=== PATIENT | female | born 1945 | race African-American/Black ===

== ENCOUNTER 2020-05-11 13:13 | Emergency (ER) | payer MEDICARE, OTHER ==
[~2020-05-11 13:13] MED LIST: Iopamidol 370 76% 125 ML VIAL FS ONE; Sodium Chloride 0.9% 1,000 ML BAG ONE; Sodium Chloride 0.9% 100 ML BAG ONE
--- NOTE | 2020-05-11 13:56 | RAD ---
EXAM: Single view of the chest HISTORY: Cough and fever COMPARISON: 09/09/2019 FINDINGS: Single view of the chest shows a normal sized cardiomediastinal silhouette. There is no kathleen dence of consolidation, mass, or pleural effusion. The bones are unremarkable IMPRESSION: No evidence of acute cardiopulmonary disease
[2020-05-11] MEDS ORDERED: Acetaminophen 325 MG TAB ONE (14:28)
[2020-05-11 14:37] LABS: #Basophils 0.1 thou/uL (0.0-0.2); #Eosinphils 0.1 thou/uL (0.0-0.7); #Lymphocytes 2.1 thou/uL (1.20-3.40); #Monocytes 0.8 thou/uL (0.11-0.59); #Neutrophils 3.9 thou/uL (1.40-6.50); %Basophils 1.2 % (0.0-1.0); %Eosinophils 1.3 % (0.0-10.0); %Lymphocytes 29.7 % (21.0-51.0); %Neutrophils 56.8 % (42.0-75.0); Hemoglobin 13.2 g/dL (12.0-16.0); Mean Corpuscular HGB CONC 30.3 g/dL (32.0-36.0); Mean Corpuscular Hemoglobin 26.6 pg (27.0-31.0); Mean Corpuscular Volume 87.8 fL (78.0-98.0); Mean Platelet Volume 6.9 fL (7.4-10.4); Platelet Count 281 thou/uL (130-400); RBC Distribution Width 13.3 % (11.5-14.5); Red Blood Cell (RBC) Count 4.95 mill/uL (4.20-5.40); White Blood Cell (WBC) Count 6.9 thou/uL (4.8-10.8)
[2020-05-11 14:45] LABS: Bilirubin Negative (Negative); Blood, Urine Trace (Negative); Glucose, Urine (Dipstick) Negative (Negative); Ketone, Urine Negative (Negative); Leukocyte Negative (Negative); Nitrite Negative (Negative); Protein, Urine (Dipstick) Negative (Neg-Trace); pH, Urine 5.5 (5.0-9.0)
[2020-05-11 14:51] LABS: INR-International Normal Ratio 1.1; PTT 28.2 sec (22.9-36.1); Prothrombin Time 14.5 sec (12.0-14.7)
[2020-05-11 14:52] LABS: ALT (SGPT) 23 U/L (8-55); AST (SGOT) 24 U/L (5-34); Albumin 3.4 g/dL (3.4-4.8); Alkaline Phosphatase 143 U/L (40-110); Anion Gap 14 mmol/L (10-20); BUN (Urea Nitrogen) 11 mg/dL (9.8-20.1); Bilirubin, Total 0.5 mg/dL (0.2-1.2); Calc. Creatinine Clearance 0 mL/min (70-130); Calcium 9.4 mg/dL (7.8-10.44); Carbon Dioxide 31 mmol/L (23-31); Chloride 99 mmol/L (98-107); Estimated GFR-MDRD Greater than 90; Globulin 3.8 g/dL (2.4-3.5); Glucose 99 mg/dL (83-110); Potassium 4.3 mmol/L (3.5-5.1); Protein, Total 7.2 g/dL (6.0-8.3); Sodium 140 mmol/L (136-145)
[2020-05-11 14:56] LABS: Clarity Hazy (Clear); Specific Gravity, Urine 1.015 (1.002-1.036)
[2020-05-11 14:57] LABS: Bacteria/HPF 3+ HPF (None Seen); Squamous Epithelial 0-3 HPF (0-3)
[2020-05-11 14:59] LABS: D-Dimer Test 2.76 *mcg/mL (0.27-0.43)
--- NOTE | 2020-05-11 16:50 | CT ---
CTA Angio Chest W WO Con History: Cough and fever Comparison: Reference is made to a radiograph of the chest same day Findings: CT angiogram chest performed after the intravenous administration of contrast. 3-D renderin g provided. There is a 1.7 cm mass in the left breast which contains an internal calcification. Pulmonary trunk i s mildly dilated. No proximal segmental pulmonary arterial filling defect. Heart size is enlarged. No pericardial effusion. Limited evaluation of the upper abdomen is relatively unremarkable. Small sliding hiatal hernia. Multiple hypodensities right lobe of the thyroid. Moderate centrilobular emphysema. Chronic bronchitis within both lower lobes, similar to the 2019 CT exam. No pneumothorax. No significant effusion. No suspicious pulmonary nodule. Impression: 1. No pulmonary embolism. 2. Mildly dilated pulmonary trunk and pulmonary arteries suggesting pulmonary hypertension. 3. Chronic lower lobe bronchitis relatively similar to 2019. 4. Moderate cardiomegaly. 5. Incompletely evaluated mass in the left breast with an internal calcification. Diagnostic mammogra phy recommended. 6. Moderate background centrilobular emphysema. 7. Multiple hypodensities right lobe of the thyroid for which nonemergent ultrasound recommended. Code: CR. ER physician notified via telephone at 4:45 pm
[2020-05-12 15:20] LABS: SARS-CoV-2 MS2 Positive; SARS-CoV-2 N Gene Negative; SARS-CoV-2 S Gene Negative; SARS-CoV-2 by NAA Not Detected (NotDetected); SARS-CoV-2 orf1ab Negative
== END 2020-05-11 18:00 ==
LOC: MADERS 13:13
DX: J42 Unspecified chronic bronchitis (principal); N63.0 Unspecified lump in unspecified breast; Z20.828 Contact with and (suspected) exposure to other viral communicable diseases; I10 Essential (primary) hypertension; E78.5 Hyperlipidemia, unspecified; E78.00 Pure hypercholesterolemia, unspecified; F03.90 Unspecified dementia, unspecified severity, without behavioral disturbance, psychotic disturbance, mood disturbance, and anxiety; Z79.82 Long term (current) use of aspirin; Z79.899 Other long term (current) drug therapy; Z79.51 Long term (current) use of inhaled steroids
CPT/HCPCS: 71045; 71275; 80053; 83605; 83880; 85025; 85379; 85610; 85730; 87040; 87077; 87086; U0003; 36415; 51701; 81003; 81015; 87186; 87635; 96360; 96361; J3490; J7050; Q9967

== ENCOUNTER 2020-05-14 10:58 | Inpatient (IN) | payer MEDICARE, OTHER ==
[2020-05-14 14:23] VITALS: BMI 31.6
[2020-05-14 15:56] LABS: #Basophils 0.1 thou/uL (0.0-0.2); #Eosinphils 0.1 thou/uL (0.0-0.7); #Lymphocytes 1.8 thou/uL (1.20-3.40); #Monocytes 0.7 thou/uL (0.11-0.59); #Neutrophils 3.8 thou/uL (1.40-6.50); %Basophils 1.9 % (0.0-1.0); %Eosinophils 1.1 % (0.0-10.0); %Lymphocytes 27.8 % (21.0-51.0); %Monocytes 10.1 % (0.0-10.0); %Neutrophils 59.1 % (42.0-75.0); Hemoglobin 12.1 g/dL (12.0-16.0); Mean Corpuscular HGB CONC 30.2 g/dL (32.0-36.0); Mean Corpuscular Hemoglobin 26.5 pg (27.0-31.0); Mean Corpuscular Volume 87.7 fL (78.0-98.0); Mean Platelet Volume 6.5 fL (7.4-10.4); Platelet Count 271 thou/uL (130-400); RBC Distribution Width 13.6 % (11.5-14.5); Red Blood Cell (RBC) Count 4.56 mill/uL (4.20-5.40); White Blood Cell (WBC) Count 6.5 thou/uL (4.8-10.8)
[2020-05-14 16:09] LABS: ALT (SGPT) 19 U/L (8-55); AST (SGOT) 18 U/L (5-34); Albumin 3.3 g/dL (3.4-4.8); Alkaline Phosphatase 126 U/L (40-110); Anion Gap 12 mmol/L (10-20); BUN (Urea Nitrogen) 10 mg/dL (9.8-20.1); Bilirubin, Total 0.3 mg/dL (0.2-1.2); Calc. Creatinine Clearance 150 mL/min (70-130); Calcium 9.2 mg/dL (7.8-10.44); Carbon Dioxide 32 mmol/L (23-31); Chloride 102 mmol/L (98-107); Estimated GFR-MDRD Greater than 90; Globulin 3.6 g/dL (2.4-3.5); Glucose 110 mg/dL (83-110); Potassium 4.2 mmol/L (3.5-5.1); Protein, Total 6.9 g/dL (6.0-8.3); Sodium 142 mmol/L (136-145)
[2020-05-14] MEDS: Vancomycin HCl 500 MG in Sodium Chloride 0.9% 100 ML IVPB SCH (16:30)
[2020-05-14] MEDS: Vancomycin HCl 750 MG in Sodium Chloride 0.9% 250 ML 250 ML IVPB SCH (16:30)
[2020-05-14] MEDS ORDERED: Nitroglycerin 0.4 MG TAB (25 Tab Bottle) SL PRN (17:20)
[2020-05-14] MEDS ORDERED: Ondansetron ODT 4 MG TAB PO PRN (17:20)
[2020-05-14] MEDS ORDERED: Fleet Enema 133 ML BOT PR PRN (17:20)
[2020-05-14] MEDS ORDERED: AMINO ACIDS PO SCH (21:00)
[2020-05-14] MEDS ORDERED: PROTEIN HYDROLYS PO SCH (21:00)
[2020-05-14] MEDS ORDERED: [UNRECOGNIZED DRUG - OTHER] PO SCH (21:00)
[2020-05-14] MEDS: Latanoprost 0.005% Ophth Soln 2.5 ml Bottle EA EYE SCH (21:43)
[2020-05-14] MEDS: CARBOXYMETHYLCELLULOSE SODIUM EA EYE SCH (21:45)
[2020-05-14] MEDS: Enoxaparin Sodium 40 MG/0.4 ML SYRINGE SC SCH (21:46)
[2020-05-14] MEDS: Simvastatin 20 MG TAB PO SCH (21:47)
[2020-05-14] MEDS: traZODone HCl 50 MG TAB PO SCH (21:47)
[2020-05-14] MEDS: Furosemide 20 MG TAB PO SCH (21:47)
[2020-05-15] MEDS: Vancomycin HCl 750 MG in Sodium Chloride 0.9% 250 ML 250 ML IVPB SCH ×2 (03:56→16:02)
[2020-05-15] MEDS: Vancomycin HCl 500 MG in Sodium Chloride 0.9% 100 ML IVPB SCH ×2 (04:07→16:03)
[2020-05-15] MEDS: Aspirin 81 mg Enteric Coated Tablet PO SCH (08:56)
[2020-05-15] MEDS: Zinc Sulfate 220 MG CAP PO SCH (08:56)
[2020-05-15] MEDS: Multivitamin W/ Minerals 1 TAB PO SCH (08:57)
[2020-05-15] MEDS: Polyethylene Glycol 3350 17 GM Packet PO SCH (08:57)
[2020-05-15] MEDS: CARBOXYMETHYLCELLULOSE SODIUM EA EYE SCH (08:57)
[2020-05-15] MEDS: Furosemide 20 MG TAB PO SCH (08:57)
[2020-05-15] MEDS ORDERED: Furosemide 20 MG TAB PO SCH (09:00)
[2020-05-15] MEDS ORDERED: (Bromfenac Sodium [Prolensa] 1 DROP) R EYE SCH (09:00)
--- NOTE | 2020-05-15 11:03 | HP ---
REASON FOR ADMISSION: Bacteremia,Urinary tract infection HISTORY OF PRESENT ILLNESS AND HOSPITAL COURSE: Ms. Hendricks is a 75-year-old female with advanced Alzheimer's dementia, CHF with latest EF of 55% to 60%, dyslipidemia, asthma/COPD,,Oxygen dependent and oropharyngeal dysphagia. The patient is a long-term resident of [facility]. The patient is in her usual state of health when the fdc staff reported four days ago that the patient has wet cough and diminished upper lobes. She was also noted to be very lethargic with blood pressure of 99/57 and heart rate of 101, and temp of 97.5. She is on continuous home O2 per nasal cannula. At that time, her O2 saturation was 98% on 2 L per nasal cannula. She was subsequently sent to the ER and was evaluated in [place] [facility]. At the ER the patient was noted to have a temperature of 100.7. On further evaluation in the ER showed that the patient was not in respiratory distress, but breath sounds of coarse crackles at the right base as per report. Her initial lab work showed WBC of 6.9.D-dimer of 2.76. INR 1.1. PT 14.5. BNP of 25. Urinalysis showed mild pyuria with urine wbc 4 to 6 with 3+ bacteria. Chest x-ray showed no evidence of acute cardiopulmonary disease. CTA showed moderate centrilobular emphysema, chronic bronchitis within both lower lobes which is similar to the 2019 CT exam. No pneumothorax. No significant effusion. No suspicious pulmonary nodule. There was a 1.7 cm mass in the left breast, which contains an internal calcification. Pulmonary trunk is mildly dilated. No pulmonary embolism. Mildly dilated pulmonary trunk and pulmonary artery suggestive of pulmonary hypertension. Moderate cardiomegaly. COVID screen test was obtained at the time of visit. The patient was sent back to the [facility] with pending COVID -19 screening test. At that time, the patient remains unchanged with her clinical status. She was still nontoxic looking nor ill-appearing and not in distress per ER report. The above ER assessment was discussed with me by the ER physician, Dr. Luis Mckeon, which was coordinated along with the adjunct nursing faculty. After learning that [facility] would be able to accommodate back the patient under isolation, the patient was sent back to [facility] for further observation. The patient remains afebrile until COVID screening test came back negative on 05/14/2020. There was no recurrence of cough reported. However, the patient's urine culture came back positive for Enterococcus faecalis and the blood culture came back positive for Staphylococcus capitis,with two of two culture sets drawn were positive. The patient was then admitted directly to [facility] after coordination with the nursing student of Nursing for inpatient IV antibiotic management. Family was notified as well by the fdc staff, who concurs to the plan of care. When admitted, the patient was afebrile and remained to be hemodynamically stable. She was not in distress. She has advanced dementia and a poor historian. She was confused, which is her baseline mental status. could not contribute nor express concerns at this point. PAST MEDICAL HISTORY: Hypertension, dyslipidemia, advanced dementia, arthritis, urinary incontinence, [place] in 2007, history of rhabdomyolysis, wristdrop, history of fall, CHF with EF of 55% to 60%, diastolic dysfunction, echocardiogram in 2018, history of weight loss, dysphagia, and asthma/COPD, DTI in the left heel, chronic. Abnormality of gait and balance, wheelchair bound, Alzheimer disease with behavioral disturbances. PAST SURGICAL HISTORY: Hysterectomy 1972, cataract surgery left eye in [place] 08/07/2019, cataract surgery in the right eye in [place] 2018. MEDICATIONS: 1. Furosemide 20 mg p.o. twice a day. 2. Trazodone 25 mg p.o. at bedtime. 3. Potassium chloride 20 mEq p.o. daily. 4. Simvastatin 20 mg at bedtime. 5. Xalatan 0.005% one drop into affected eye in the evening at bedtime. 6. Pro-Stat 30 mL p.o. b.i.d. liquid. 7. Artificial Tears 1-2 drops daily. 8. Bromfenac sodium 0.07 solution one drop into affected eye daily. 9. Acetaminophen 500 mg p.o. q.4 hours p.r.n. 10. Lactulose 10 g per 15 mL, 30 mL at bedtime p.r.n. 11. MiraLAX 17 g at bedtime daily. 12. Multivitamins one tablet p.o. daily. FAMILY HISTORY: Noncontributory. SOCIAL HISTORY: She was a former smoker. No alcohol or illicit drug use. ALLERGIES: NKDA. PREVIOUS HOSPITALIZATION: Hysterectomy 1972, heart attack 2007, UTI and asthma exacerbation with acute respiratory failure and hypoxia 09/09 to 09/13/2019. REVIEW OF SYSTEMS: Limited secondary to dementia. PHYSICAL EXAMINATION: VITAL SIGNS: Blood pressure 137/62, temperature 96.9, pulse 80, respirations 16 , O2 saturation 95% on 2 L nasal cannula. GENERAL: The patient is awake, alert, and oriented to name only. Confused, pleasant, no signs of agony, not in acute respiratory distress. HEENT: Normocephalic, atraumatic. PERRL. Intact EOM. Anicteric sclerae. Oral mucosa is moist. NECK: Supple. No LAD. Flat JVD. CHEST: Normal excursion. Nonlabored breathing. LUNGS: Clear to auscultation bilaterally. CARDIAC: RRR. Normal S1 and S2. ABDOMEN: Flat, soft. Normoactive bowel sounds. Nondistended, nontender. No rebound or guarding. Negative CVA tenderness bilaterally with mild suprapubic direct tenderness. EXTREMITIES: Trace nonpitting bilateral edema up to the thigh. No cyanosis. SKIN: Good skin turgor with left heel DTI. She wears heel boot bilaterally. LABORATORY DATA: WBC 6.5, hemoglobin 12.1, hematocrit 40, platelets 271. No significant left shift. Sodium 142, potassium 4.2, BUN 10, creatinine 0.44, glucose 110, calcium 9.2, alkaline phosphatase 126. C-reactive protein 4.07, albumin 3.3. COVID-19 PCR on 05/11/2020, negative. Urine culture and blood culture sent, both sensitive to vancomycin. Lactic acid on 05/11/2020 was 1.4.BNP 25. ASSESSMENT AND PLAN: 1. Bacteremia without evidence of sepsis. 2. UTI with Enterococcus faecalis. 3. Congestive heart failure, diastolic with ejection fraction of 55% to 60% as of echocardiogram on September 2019, not in acute exacerbation. 4. Chronic obstructive pulmonary disease. 5. Dysphagia, oropharyngeal phase. 6. Dependence on continuous supplemental oxygen. 7. Chronic insomnia. 8. Alzheimer's dementia with behavioral disturbances, late onset. 9. Abnormality of gait due to impairment of balance. 10. Left Breast mass, 1.7 cm as determined by CTA of the chest, suspect malignancy needing further outpatient evaluation. 11. Multiple densities of thyroid by CTA on 05/11/2020 Pressure induced deep tissue damage of the left heel. 12. Dyslipidemia. PLAN: 1. The patient is admitted to [facility] for inpatient management of bacteremia and UTI in a 75-year-old with advanced dementia and multiple comorbidities from the [facility]dc facility. There was no apparent evidence of sepsis.There was no signs of septic shock, hypotension, elevated lactate or evidence of organ dysfunction. We will start vancomycin IV based on urine and blood cultures. Vancomycin trough to be obtained after third dose. Pharmacy to dose. 2. We will continue the patient's current medications per list. 3. Diet pureed and nectar thickened. Aspiration precautions. 4. Activity to be determined by therapist. Based on her baseline functional status, she is wheelchair bound. She is at risk for fall. Fall precautions. 5. Continue O2 sats to keep O2 sats 90 and above. 6. Refer to PT, OT, and ST. 7. Serial CBC, BMP, sedimentation rate, and CRP every week. 8. Plan is to complete IV antibiotic therapy for 7-14 days. 9. Further recommendations depending on the hospital course. 10. Outpatient diagnostic mammogram and Thyroid USG will be considered by family post hospitalization. CODE STATUS: The patient is DNAR. This was confirmed with her sister, Christianne Ortiz, who is the medical power of monumental stonemason and surrogate decision maker for the patient. I spoke to Ms. Ortiz in the phone and discussed the patient's current condition, plan of care. Job ID: [id number] [facility]
[2020-05-15] MEDS: BROMFENAC SODIUM R EYE SCH (16:09)
[2020-05-15] MEDS: Latanoprost 0.005% Ophth Soln 2.5 ml Bottle EA EYE SCH (20:43)
[2020-05-15] MEDS: traZODone HCl 50 MG TAB PO SCH (20:44)
[2020-05-15] MEDS: Simvastatin 20 MG TAB PO SCH (20:44)
[2020-05-15] MEDS: Artificial Tear Sol 15 ML BOT EA EYE SCH (20:44)
[2020-05-15] MEDS: Enoxaparin Sodium 40 MG/0.4 ML SYRINGE SC SCH (20:45)
[2020-05-16 03:17] LABS: Vancomycin, Trough 15.6 ug/mL
[2020-05-16] MEDS: Vancomycin HCl 750 MG in Sodium Chloride 0.9% 250 ML 250 ML IVPB SCH ×2 (04:13→15:29)
[2020-05-16] MEDS: Vancomycin HCl 500 MG in Sodium Chloride 0.9% 100 ML IVPB SCH ×2 (04:13→15:29)
[2020-05-16] MEDS: Zinc Sulfate 220 MG CAP PO SCH (08:15)
[2020-05-16] MEDS: Artificial Tear Sol 15 ML BOT EA EYE SCH ×2 (08:15→20:44)
[2020-05-16] MEDS: Multivitamin W/ Minerals 1 TAB PO SCH (08:15)
[2020-05-16] MEDS: Aspirin 81 mg Enteric Coated Tablet PO SCH (08:16)
[2020-05-16] MEDS: BROMFENAC SODIUM R EYE SCH (08:16)
[2020-05-16] MEDS: Furosemide 20 MG TAB PO SCH (08:16)
[2020-05-16] MEDS: Polyethylene Glycol 3350 17 GM Packet PO SCH (08:17)
[2020-05-16] MEDS ORDERED: Furosemide 20 MG TAB PO SCH (10:30)
[2020-05-16] MEDS: Acetaminophen 500 MG TAB PO PRN (20:43)
[2020-05-16] MEDS: Simvastatin 20 MG TAB PO SCH (20:43)
[2020-05-16] MEDS: Latanoprost 0.005% Ophth Soln 2.5 ml Bottle EA EYE SCH (20:44)
[2020-05-16] MEDS: traZODone HCl 50 MG TAB PO SCH (20:44)
[2020-05-16] MEDS: Enoxaparin Sodium 40 MG/0.4 ML SYRINGE SC SCH (20:44)
[2020-05-17] MEDS: Vancomycin HCl 750 MG in Sodium Chloride 0.9% 250 ML 250 ML IVPB SCH ×2 (03:03→15:19)
[2020-05-17] MEDS: Vancomycin HCl 500 MG in Sodium Chloride 0.9% 100 ML IVPB SCH ×2 (04:10→15:18)
[2020-05-17] MEDS: Aspirin 81 mg Enteric Coated Tablet PO SCH (08:11)
[2020-05-17] MEDS: Artificial Tear Sol 15 ML BOT EA EYE SCH ×2 (08:11→21:19)
[2020-05-17] MEDS: Potassium Chloride 20 MEQ TAB PO SCH (08:11)
[2020-05-17] MEDS: Furosemide 20 MG TAB PO SCH (08:11)
[2020-05-17] MEDS: Zinc Sulfate 220 MG CAP PO SCH (08:11)
[2020-05-17] MEDS: Multivitamin W/ Minerals 1 TAB PO SCH (08:11)
[2020-05-17] MEDS: Polyethylene Glycol 3350 17 GM Packet PO SCH (08:11)
[2020-05-17] MEDS: BROMFENAC SODIUM R EYE SCH (08:12)
[2020-05-17 15:11] LABS: Vancomycin, Trough 18.5 ug/mL
[2020-05-17] MEDS: traZODone HCl 50 MG TAB PO SCH (21:16)
[2020-05-17] MEDS: Acetaminophen 500 MG TAB PO PRN (21:16)
[2020-05-17] MEDS: Enoxaparin Sodium 40 MG/0.4 ML SYRINGE SC SCH (21:16)
[2020-05-17] MEDS: Simvastatin 20 MG TAB PO SCH (21:16)
[2020-05-17] MEDS: Latanoprost 0.005% Ophth Soln 2.5 ml Bottle EA EYE SCH (21:19)
[2020-05-18] MEDS: Vancomycin HCl 750 MG in Sodium Chloride 0.9% 250 ML 250 ML IVPB SCH (03:09)
[2020-05-18] MEDS: Vancomycin HCl 500 MG in Sodium Chloride 0.9% 100 ML IVPB SCH (04:01)
[2020-05-18] MEDS: Zinc Sulfate 220 MG CAP PO SCH (09:43)
[2020-05-18] MEDS: Multivitamin W/ Minerals 1 TAB PO SCH (09:43)
[2020-05-18] MEDS: Furosemide 20 MG TAB PO SCH (09:43)
[2020-05-18] MEDS: Polyethylene Glycol 3350 17 GM Packet PO SCH (09:43)
[2020-05-18] MEDS: Aspirin 81 mg Enteric Coated Tablet PO SCH (09:43)
[2020-05-18] MEDS: BROMFENAC SODIUM R EYE SCH (09:44)
[2020-05-18] MEDS: Potassium Chloride 20 MEQ TAB PO SCH (09:44)
[2020-05-18] MEDS: Artificial Tear Sol 15 ML BOT EA EYE SCH (09:44)
[2020-05-18] MEDS: Acetaminophen 500 MG TAB PO PRN (11:26)
[2020-05-18 12:45] VITALS: BP 105/66; TEMP 96.8
--- NOTE | 2020-05-20 11:33 | PQF ---
CLINICAL DOCUMENTATION CLARIFICATION FORM: Dear : _Conchis Jean Baptiste Date / Time: __05/20/2020_ Please exercise your independent, professional judgment in responding to the clarification form. Clinical indicators are provided on the bottom of this form for your review Please check appropriate box(es): [ ] Sepsis [ X ] UTI without sepsis [ X] Other diagnosis _Bacteremia with Staphylococcus capitis [ ] Unable to determine In addition, please specify: Present on Admission (POA): [ X ] Yes [ ] No [ ] Unable to determine NOTE: The patient has no evidence of SIRS upon admission. Her highest HR on 05/16/20 was 105 per minute, x 1 episode. Physician Signature: Date/Time: For continuity of documentation, please document condition throughout progress notes and discharge summary. Thank You. To be completed by CDI/Coding staff for physician review: w Present w Clinical Indicators - Signs / Symptoms / Labs w Results and Location in Medical Record w [x ] w Bacteremia and UTI w H&P, 05/14,Conchis Jean Baptiste MD w [x ] w Urosepsis w H&P, 05/14,Conchis Jean Baptiste MD w [x ] w Temp: 96.9F L, 97.9F, Pulse: 115H, 102H w Vital signs, 05/16 w [x ] w Urinalysis showed mild pyuria with wbc 4 to 6 with 3+ bacteria w H&P, ,Conchis Jean Baptiste MD w w w w Present w Risk Factors w Results and Location in Medical Record w [x ] w UTI w H&P, 05/14,Conchis Jean Baptiste MD w [x ] w Pressure induced deep tissue damage of the left heel w H&P, 05/14, Conchis Jean Baptiste MD w w w w Present w Treatments w Results and Location in Medical Record w [x ] w Vancomycin.IV w NOV, 05/14 w w w CDS/Gta Signature: Yady Pitts Phone #: [phone] Date/Time:_ 05/20/2020 This is a permanent part of the Medical Record [facility]
== END 2020-05-18 14:04 | disposition swing bed (61) | DRG 690 ==
LOC: MADMS 13:19
PROVIDERS: ADMIT Family Medicine; ATTEND Family Medicine
DX: N39.0 Urinary tract infection, site not specified (principal); I50.32 Chronic diastolic (congestive) heart failure; F02.81 Dementia in other diseases classified elsewhere, unspecified severity, with behavioral disturbance; R13.10 Dysphagia, unspecified; F51.04 Psychophysiologic insomnia; G30.9 Alzheimer's disease, unspecified; R26.9 Unspecified abnormalities of gait and mobility; E78.5 Hyperlipidemia, unspecified; E05.90 Thyrotoxicosis, unspecified without thyrotoxic crisis or storm; J44.9 Chronic obstructive pulmonary disease, unspecified; Z99.81 Dependence on supplemental oxygen; Z99.3 Dependence on wheelchair
CPT/HCPCS: 36415; 51701; 71045; 71275; 80053; 80202; 81003; 81015; 83605; 83880; 85025; 85379; 85610; 85652; 85730; 86140; 87040; 87077; 87086; 87186; 87635; 96360; 96361; J1650; J3370; J3490; J7050; Q9967; U0003

== ENCOUNTER 2020-05-18 13:22 | Inpatient (IN) | payer MEDICARE, OTHER ==
[2020-05-18] MEDS ORDERED: Ondansetron ODT 4 MG TAB PO PRN (14:50)
[2020-05-18] MEDS ORDERED: Nitroglycerin 0.4 MG TAB (25 Tab Bottle) SL PRN (14:50)
[2020-05-18] MEDS ORDERED: Acetaminophen 500 MG TAB PO PRN (14:50)
[2020-05-18] MEDS ORDERED: Fleet Enema 133 ML BOT PR PRN (14:50)
[2020-05-18] MEDS ORDERED: Vancomycin HCl 750 MG in Sodium Chloride 0.9% 250 ML 250 ML IVPB SCH (16:00)
[2020-05-18] MEDS ORDERED: Vancomycin HCl 750 MG VIAL IVPB SCH (16:00)
[2020-05-18] MEDS ORDERED: Vancomycin HCl 500 MG VIAL IVPB SCH (17:00)
[2020-05-18] MEDS ORDERED: SODIUM CHLORIDE 0.9% IVPB SCH (17:00)
[2020-05-18] MEDS ORDERED: Vancomycin HCl 500 MG in Sodium Chloride 0.9% 100 ML IVPB SCH (17:00)
[2020-05-18] MEDS ORDERED: [UNRECOGNIZED DRUG - OTHER] IVPB SCH (17:00)
[2020-05-18] MEDS ORDERED: PROTEIN HYDROLYS PO SCH (21:00)
[2020-05-18] MEDS ORDERED: [UNRECOGNIZED DRUG - OTHER] PO SCH (21:00)
[2020-05-18] MEDS ORDERED: AMINO ACIDS PO SCH (21:00)
[2020-05-18] MEDS: Latanoprost 0.005% Ophth Soln 2.5 ml Bottle EA EYE SCH (21:38)
[2020-05-18] MEDS: Enoxaparin Sodium 40 MG/0.4 ML SYRINGE SC SCH (21:38)
[2020-05-18] MEDS: Artificial Tear Sol 15 ML BOT EA EYE SCH (21:38)
[2020-05-18] MEDS: Acetaminophen 500 MG TAB PO PRN (21:38)
[2020-05-18] MEDS: traZODone HCl 50 MG TAB PO SCH (21:39)
[2020-05-18] MEDS: Simvastatin 20 MG TAB PO SCH (21:39)
[2020-05-18] MEDS: CARBOXYMETHYLCELLULOSE SODIUM EA EYE SCH (21:55)
[2020-05-19 03:11] LABS: Vancomycin, Trough 19.8 ug/mL
[2020-05-19] MEDS: Vancomycin HCl 1 GM in Sodium Chloride 0.9% 250 ML 250 ML IVPB SCH ×2 (03:46→16:01)
[2020-05-19 07:30] LABS: Hemoglobin 10.7 g/dL (12.0-16.0); Mean Corpuscular Hemoglobin 26.5 pg (27.0-31.0); Mean Corpuscular Volume 88.4 fL (78.0-98.0); Platelet Count 223 thou/uL (130-400); RBC Distribution Width 13.7 % (11.5-14.5); Red Blood Cell (RBC) Count 4.02 mill/uL (4.20-5.40); White Blood Cell (WBC) Count 5.8 thou/uL (4.8-10.8)
[2020-05-19 07:31] LABS: MDiff Complete? YES; Manual Diff?? YES; Mean Platelet Volume 6.9 fL (7.4-10.4); Monocytes 11 % (0-10)
[2020-05-19 07:32] LABS: Eosinophils 7 % (0-10); Lymphocytes 33 % (21-51)
[2020-05-19 07:33] LABS: Neutrophil 47 % (42-75)
[2020-05-19 07:49] LABS: Potassium 4.3 mmol/L (3.5-5.1); Sodium 144 mmol/L (136-145)
[2020-05-19 07:50] LABS: Anion Gap 12 mmol/L (10-20); BUN (Urea Nitrogen) 8 mg/dL (9.8-20.1); CRP (Inflammatory) 1.85 mg/dL (= or < 0.5); Calc. Creatinine Clearance 152 mL/min (70-130); Calcium 8.9 mg/dL (7.8-10.44); Carbon Dioxide 32 mmol/L (23-31); Chloride 104 mmol/L (98-107); Estimated GFR-MDRD Greater than 90; Glucose 86 mg/dL (83-110)
[2020-05-19] MEDS: Potassium Chloride 20 MEQ TAB PO SCH (08:06)
[2020-05-19] MEDS: Furosemide 20 MG TAB PO SCH (08:06)
[2020-05-19] MEDS: Artificial Tear Sol 15 ML BOT EA EYE SCH ×2 (08:06→21:19)
[2020-05-19] MEDS: Zinc Sulfate 220 MG CAP PO SCH (08:06)
[2020-05-19] MEDS: Multivitamin W/ Minerals 1 TAB PO SCH (08:06)
[2020-05-19] MEDS: Aspirin 81 mg Enteric Coated Tablet PO SCH (08:06)
[2020-05-19] MEDS: Polyethylene Glycol 3350 17 GM Packet PO SCH (08:07)
[2020-05-19] MEDS: CARBOXYMETHYLCELLULOSE SODIUM EA EYE SCH ×3 (08:10→21:29)
[2020-05-19] MEDS: (Bromfenac Sodium [Prolensa] 1 DROP) R EYE SCH (08:10)
[2020-05-19] MEDS: Enoxaparin Sodium 40 MG/0.4 ML SYRINGE SC SCH (21:19)
[2020-05-19] MEDS: Simvastatin 20 MG TAB PO SCH (21:20)
[2020-05-19] MEDS: Latanoprost 0.005% Ophth Soln 2.5 ml Bottle EA EYE SCH (21:20)
[2020-05-19] MEDS: Acetaminophen 500 MG TAB PO PRN (21:20)
[2020-05-19] MEDS: traZODone HCl 50 MG TAB PO SCH (21:20)
[2020-05-20] MEDS: Vancomycin HCl 1 GM in Sodium Chloride 0.9% 250 ML 250 ML IVPB SCH ×2 (03:42→16:11)
[2020-05-20] MEDS: Aspirin 81 mg Enteric Coated Tablet PO SCH (08:05)
[2020-05-20] MEDS: Zinc Sulfate 220 MG CAP PO SCH (08:05)
[2020-05-20] MEDS: Furosemide 20 MG TAB PO SCH (08:05)
[2020-05-20] MEDS: Potassium Chloride 20 MEQ TAB PO SCH (08:05)
[2020-05-20] MEDS: Artificial Tear Sol 15 ML BOT EA EYE SCH ×2 (08:05→20:26)
[2020-05-20] MEDS: (Bromfenac Sodium [Prolensa] 1 DROP) R EYE SCH (08:06)
[2020-05-20] MEDS: Multivitamin W/ Minerals 1 TAB PO SCH (08:06)
[2020-05-20] MEDS: CARBOXYMETHYLCELLULOSE SODIUM EA EYE SCH ×2 (08:06→20:25)
[2020-05-20] MEDS: Polyethylene Glycol 3350 17 GM Packet PO SCH (08:06)
[2020-05-20 15:19] LABS: Vancomycin, Trough 17.5 ug/mL
[2020-05-20] MEDS: Enoxaparin Sodium 40 MG/0.4 ML SYRINGE SC SCH (20:25)
[2020-05-20] MEDS: traZODone HCl 50 MG TAB PO SCH (20:26)
[2020-05-20] MEDS: Latanoprost 0.005% Ophth Soln 2.5 ml Bottle EA EYE SCH (20:26)
[2020-05-20] MEDS: Simvastatin 20 MG TAB PO SCH (20:27)
[2020-05-21] MEDS ORDERED: Sodium Chloride 0.9% 250 ML 250 ML ONE (02:10)
[2020-05-21] MEDS: Vancomycin HCl 1 GM in Sodium Chloride 0.9% 250 ML 250 ML IVPB SCH ×2 (03:04→16:41)
[2020-05-21] MEDS: Artificial Tear Sol 15 ML BOT EA EYE SCH ×2 (08:16→20:12)
[2020-05-21] MEDS: Aspirin 81 mg Enteric Coated Tablet PO SCH (08:16)
[2020-05-21] MEDS: Polyethylene Glycol 3350 17 GM Packet PO SCH (08:16)
[2020-05-21] MEDS: Potassium Chloride 20 MEQ TAB PO SCH (08:17)
[2020-05-21] MEDS: CARBOXYMETHYLCELLULOSE SODIUM EA EYE SCH (08:17)
[2020-05-21] MEDS: (Bromfenac Sodium [Prolensa] 1 DROP) R EYE SCH (08:17)
[2020-05-21] MEDS: Furosemide 20 MG TAB PO SCH (08:17)
[2020-05-21] MEDS: Zinc Sulfate 220 MG CAP PO SCH (08:17)
[2020-05-21] MEDS: Multivitamin W/ Minerals 1 TAB PO SCH (08:17)
[2020-05-21] MEDS: traZODone HCl 50 MG TAB PO SCH (20:09)
[2020-05-21] MEDS: Enoxaparin Sodium 40 MG/0.4 ML SYRINGE SC SCH (20:09)
[2020-05-21] MEDS: Simvastatin 20 MG TAB PO SCH (20:09)
[2020-05-21] MEDS: Latanoprost 0.005% Ophth Soln 2.5 ml Bottle EA EYE SCH (20:10)
[2020-05-22] MEDS: Vancomycin HCl 1 GM in Sodium Chloride 0.9% 250 ML 250 ML IVPB SCH ×2 (02:59→15:57)
[2020-05-22] MEDS: Aspirin 81 mg Enteric Coated Tablet PO SCH (08:06)
[2020-05-22] MEDS: Potassium Chloride 20 MEQ TAB PO SCH (08:07)
[2020-05-22] MEDS: Multivitamin W/ Minerals 1 TAB PO SCH (08:07)
[2020-05-22] MEDS: Furosemide 20 MG TAB PO SCH (08:07)
[2020-05-22] MEDS: Zinc Sulfate 220 MG CAP PO SCH (08:07)
[2020-05-22] MEDS: Artificial Tear Sol 15 ML BOT EA EYE SCH ×2 (08:08→20:19)
[2020-05-22] MEDS: BROMFENAC SODIUM 0.07% R EYE SCH (08:09)
[2020-05-22] MEDS: Polyethylene Glycol 3350 17 GM Packet PO SCH (08:16)
[2020-05-22] MEDS: Latanoprost 0.005% Ophth Soln 2.5 ml Bottle EA EYE SCH (20:19)
[2020-05-22] MEDS: traZODone HCl 50 MG TAB PO SCH (20:20)
[2020-05-22] MEDS: Simvastatin 20 MG TAB PO SCH (20:20)
[2020-05-22] MEDS: Enoxaparin Sodium 40 MG/0.4 ML SYRINGE SC SCH (20:20)
[2020-05-23] MEDS: Vancomycin HCl 1 GM in Sodium Chloride 0.9% 250 ML 250 ML IVPB SCH ×3 (03:16→16:25)
[2020-05-23] MEDS: Multivitamin W/ Minerals 1 TAB PO SCH (09:20)
[2020-05-23] MEDS: Zinc Sulfate 220 MG CAP PO SCH (09:20)
[2020-05-23] MEDS: Furosemide 20 MG TAB PO SCH (09:20)
[2020-05-23] MEDS: Artificial Tear Sol 15 ML BOT EA EYE SCH ×2 (09:22→21:02)
[2020-05-23] MEDS: Potassium Chloride 20 MEQ TAB PO SCH (09:22)
[2020-05-23] MEDS: BROMFENAC SODIUM 0.07% R EYE SCH (09:22)
[2020-05-23] MEDS: Aspirin 81 mg Enteric Coated Tablet PO SCH (09:22)
[2020-05-23] MEDS: Polyethylene Glycol 3350 17 GM Packet PO SCH (09:33)
[2020-05-23 15:42] LABS: Vancomycin, Trough 14.1 ug/mL
[2020-05-23] MEDS: Enoxaparin Sodium 40 MG/0.4 ML SYRINGE SC SCH (21:01)
[2020-05-23] MEDS: traZODone HCl 50 MG TAB PO SCH (21:01)
[2020-05-23] MEDS: Simvastatin 20 MG TAB PO SCH (21:01)
[2020-05-23] MEDS: Latanoprost 0.005% Ophth Soln 2.5 ml Bottle EA EYE SCH (21:02)
[2020-05-24] MEDS: Vancomycin HCl 1 GM in Sodium Chloride 0.9% 250 ML 250 ML IVPB SCH ×2 (03:28→15:53)
[2020-05-24] MEDS: Zinc Sulfate 220 MG CAP PO SCH (08:20)
[2020-05-24] MEDS: Multivitamin W/ Minerals 1 TAB PO SCH (08:20)
[2020-05-24] MEDS: Potassium Chloride 20 MEQ TAB PO SCH (08:20)
[2020-05-24] MEDS: Polyethylene Glycol 3350 17 GM Packet PO SCH (08:20)
[2020-05-24] MEDS: Aspirin 81 mg Enteric Coated Tablet PO SCH (08:20)
[2020-05-24] MEDS: Furosemide 20 MG TAB PO SCH (08:21)
[2020-05-24] MEDS: BROMFENAC SODIUM 0.07% R EYE SCH (08:22)
[2020-05-24] MEDS: Artificial Tear Sol 15 ML BOT EA EYE SCH ×2 (08:22→20:37)
[2020-05-24] MEDS: traZODone HCl 50 MG TAB PO SCH (20:37)
[2020-05-24] MEDS: Simvastatin 20 MG TAB PO SCH (20:37)
[2020-05-24] MEDS: Latanoprost 0.005% Ophth Soln 2.5 ml Bottle EA EYE SCH (20:38)
[2020-05-24] MEDS: Enoxaparin Sodium 40 MG/0.4 ML SYRINGE SC SCH (20:52)
[2020-05-25] MEDS: Vancomycin HCl 1 GM in Sodium Chloride 0.9% 250 ML 250 ML IVPB SCH ×2 (03:39→15:47)
[2020-05-25 05:30] LABS: Vancomycin, Trough 47.4 ug/mL
[2020-05-25] MEDS: Artificial Tear Sol 15 ML BOT EA EYE SCH ×2 (08:42→20:19)
[2020-05-25] MEDS: BROMFENAC SODIUM 0.07% R EYE SCH (08:42)
[2020-05-25] MEDS: Aspirin 81 mg Enteric Coated Tablet PO SCH (08:43)
[2020-05-25] MEDS: Polyethylene Glycol 3350 17 GM Packet PO SCH (08:43)
[2020-05-25] MEDS: Zinc Sulfate 220 MG CAP PO SCH (08:43)
[2020-05-25] MEDS: Potassium Chloride 20 MEQ TAB PO SCH (08:43)
[2020-05-25] MEDS: Multivitamin W/ Minerals 1 TAB PO SCH (08:43)
[2020-05-25 15:35] LABS: Vancomycin, Trough 17.1 ug/mL
[2020-05-25] MEDS: Simvastatin 20 MG TAB PO SCH (20:18)
[2020-05-25] MEDS: Latanoprost 0.005% Ophth Soln 2.5 ml Bottle EA EYE SCH (20:18)
[2020-05-25] MEDS: Enoxaparin Sodium 40 MG/0.4 ML SYRINGE SC SCH (20:19)
[2020-05-25] MEDS: traZODone HCl 50 MG TAB PO SCH (20:21)
[2020-05-26] MEDS: Vancomycin HCl 1 GM in Sodium Chloride 0.9% 250 ML 250 ML IVPB SCH ×2 (03:57→15:42)
[2020-05-26] MEDS: Potassium Chloride 20 MEQ TAB PO SCH (08:00)
[2020-05-26] MEDS: Multivitamin W/ Minerals 1 TAB PO SCH (08:00)
[2020-05-26] MEDS: BROMFENAC SODIUM 0.07% R EYE SCH (08:00)
[2020-05-26] MEDS: Zinc Sulfate 220 MG CAP PO SCH (08:00)
[2020-05-26] MEDS: Artificial Tear Sol 15 ML BOT EA EYE SCH ×2 (08:00→20:14)
[2020-05-26] MEDS: Aspirin 81 mg Enteric Coated Tablet PO SCH (08:00)
[2020-05-26] MEDS: Polyethylene Glycol 3350 17 GM Packet PO SCH (08:18)
[2020-05-26] MEDS: Simvastatin 20 MG TAB PO SCH (20:11)
[2020-05-26] MEDS: traZODone HCl 50 MG TAB PO SCH (20:11)
[2020-05-26] MEDS: Enoxaparin Sodium 40 MG/0.4 ML SYRINGE SC SCH (20:13)
[2020-05-26] MEDS: Latanoprost 0.005% Ophth Soln 2.5 ml Bottle EA EYE SCH (20:13)
[2020-05-27] MEDS: Vancomycin HCl 1 GM in Sodium Chloride 0.9% 250 ML 250 ML IVPB SCH ×2 (03:59→15:21)
[2020-05-27 05:11] LABS: #Basophils 0.1 thou/uL (0.0-0.2); #Eosinphils 0.2 thou/uL (0.0-0.7); #Lymphocytes 1.7 thou/uL (1.20-3.40); #Monocytes 0.6 thou/uL (0.11-0.59); #Neutrophils 3.1 thou/uL (1.40-6.50); %Basophils 2.5 % (0.0-1.0); %Eosinophils 3.5 % (0.0-10.0); %Lymphocytes 29.9 % (21.0-51.0); %Monocytes 10.5 % (0.0-10.0); %Neutrophils 53.6 % (42.0-75.0); Hemoglobin 10.1 g/dL (12.0-16.0); Mean Corpuscular HGB CONC 30.2 g/dL (32.0-36.0); Mean Corpuscular Hemoglobin 26.8 pg (27.0-31.0); Mean Corpuscular Volume 88.5 fL (78.0-98.0); Mean Platelet Volume 7.5 fL (7.4-10.4); Platelet Count 192 thou/uL (130-400); RBC Distribution Width 14.3 % (11.5-14.5); Red Blood Cell (RBC) Count 3.76 mill/uL (4.20-5.40); White Blood Cell (WBC) Count 5.8 thou/uL (4.8-10.8)
[2020-05-27 05:29] LABS: Anion Gap 10 mmol/L (10-20); BUN (Urea Nitrogen) 7 mg/dL (9.8-20.1); Calc. Creatinine Clearance 166 mL/min (70-130); Calcium 8.7 mg/dL (7.8-10.44); Carbon Dioxide 29 mmol/L (23-31); Chloride 106 mmol/L (98-107); Estimated GFR-MDRD Greater than 90; Glucose 98 mg/dL (83-110); Potassium 3.8 mmol/L (3.5-5.1); Sodium 141 mmol/L (136-145)
[2020-05-27] MEDS: Multivitamin W/ Minerals 1 TAB PO SCH (08:21)
[2020-05-27] MEDS: Polyethylene Glycol 3350 17 GM Packet PO SCH (08:21)
[2020-05-27] MEDS: Aspirin 81 mg Enteric Coated Tablet PO SCH (08:22)
[2020-05-27] MEDS: Zinc Sulfate 220 MG CAP PO SCH (08:22)
[2020-05-27] MEDS: BROMFENAC SODIUM 0.07% R EYE SCH (08:22)
[2020-05-27] MEDS: Potassium Chloride 20 MEQ TAB PO SCH (08:22)
[2020-05-27] MEDS: Artificial Tear Sol 15 ML BOT EA EYE SCH ×2 (08:22→20:15)
[2020-05-27] MEDS: Simvastatin 20 MG TAB PO SCH (20:01)
[2020-05-27] MEDS: traZODone HCl 50 MG TAB PO SCH (20:04)
[2020-05-27] MEDS: Latanoprost 0.005% Ophth Soln 2.5 ml Bottle EA EYE SCH (20:06)
[2020-05-27] MEDS: Enoxaparin Sodium 40 MG/0.4 ML SYRINGE SC SCH (20:07)
[2020-05-28] MEDS: Vancomycin HCl 1 GM in Sodium Chloride 0.9% 250 ML 250 ML IVPB SCH ×2 (03:59→15:50)
[2020-05-28] MEDS: Polyethylene Glycol 3350 17 GM Packet PO SCH (08:06)
[2020-05-28] MEDS: Multivitamin W/ Minerals 1 TAB PO SCH (08:06)
[2020-05-28] MEDS: Aspirin 81 mg Enteric Coated Tablet PO SCH (08:06)
[2020-05-28] MEDS: Potassium Chloride 20 MEQ TAB PO SCH (08:06)
[2020-05-28] MEDS: Zinc Sulfate 220 MG CAP PO SCH (08:06)
[2020-05-28] MEDS: BROMFENAC SODIUM 0.07% R EYE SCH (08:07)
[2020-05-28] MEDS: Artificial Tear Sol 15 ML BOT EA EYE SCH ×2 (08:07→21:04)
[2020-05-28 15:17] LABS: Vancomycin, Trough 15.5 ug/mL
[2020-05-28] MEDS: Enoxaparin Sodium 40 MG/0.4 ML SYRINGE SC SCH (21:05)
[2020-05-28] MEDS: traZODone HCl 50 MG TAB PO SCH (21:05)
[2020-05-28] MEDS: Simvastatin 20 MG TAB PO SCH (21:05)
[2020-05-28] MEDS: Latanoprost 0.005% Ophth Soln 2.5 ml Bottle EA EYE SCH (21:05)
[2020-05-28] MEDS: Acetaminophen 500 MG TAB PO PRN (21:06)
[2020-05-29] MEDS: Vancomycin HCl 1 GM in Sodium Chloride 0.9% 250 ML 250 ML IVPB SCH ×2 (04:23→20:38)
[2020-05-29] MEDS: Multivitamin W/ Minerals 1 TAB PO SCH (08:28)
[2020-05-29] MEDS: Aspirin 81 mg Enteric Coated Tablet PO SCH (08:28)
[2020-05-29] MEDS: Polyethylene Glycol 3350 17 GM Packet PO SCH (08:29)
[2020-05-29] MEDS: Zinc Sulfate 220 MG CAP PO SCH (08:29)
[2020-05-29] MEDS: Potassium Chloride 20 MEQ TAB PO SCH (08:29)
[2020-05-29] MEDS: BROMFENAC SODIUM 0.07% R EYE SCH (08:31)
[2020-05-29] MEDS: Artificial Tear Sol 15 ML BOT EA EYE SCH ×2 (08:31→20:38)
[2020-05-29] MEDS: Latanoprost 0.005% Ophth Soln 2.5 ml Bottle EA EYE SCH (20:38)
[2020-05-29] MEDS: Simvastatin 20 MG TAB PO SCH (20:39)
[2020-05-29] MEDS: traZODone HCl 50 MG TAB PO SCH (20:39)
[2020-05-29] MEDS: Acetaminophen 500 MG TAB PO PRN (20:39)
[2020-05-29] MEDS: Enoxaparin Sodium 40 MG/0.4 ML SYRINGE SC SCH (20:39)
[2020-05-30] MEDS: Multivitamin W/ Minerals 1 TAB PO SCH (08:30)
[2020-05-30] MEDS: Zinc Sulfate 220 MG CAP PO SCH (08:30)
[2020-05-30] MEDS: Polyethylene Glycol 3350 17 GM Packet PO SCH (08:30)
[2020-05-30] MEDS: Vancomycin HCl 1 GM in Sodium Chloride 0.9% 250 ML 250 ML IVPB SCH ×2 (08:30→20:01)
[2020-05-30] MEDS: Aspirin 81 mg Enteric Coated Tablet PO SCH (08:30)
[2020-05-30] MEDS: Potassium Chloride 20 MEQ TAB PO SCH (08:30)
[2020-05-30] MEDS: BROMFENAC SODIUM 0.07% R EYE SCH (08:30)
[2020-05-30] MEDS: Artificial Tear Sol 15 ML BOT EA EYE SCH ×2 (08:30→19:59)
[2020-05-30] MEDS: Latanoprost 0.005% Ophth Soln 2.5 ml Bottle EA EYE SCH (20:00)
[2020-05-30] MEDS: Enoxaparin Sodium 40 MG/0.4 ML SYRINGE SC SCH (20:00)
[2020-05-30] MEDS: Acetaminophen 500 MG TAB PO PRN (20:00)
[2020-05-30] MEDS: Simvastatin 20 MG TAB PO SCH (20:00)
[2020-05-30] MEDS: traZODone HCl 50 MG TAB PO SCH (20:01)
[2020-05-31 07:30] LABS: Vancomycin, Trough 17.1 ug/mL
[2020-05-31] MEDS: BROMFENAC SODIUM 0.07% R EYE SCH (08:10)
[2020-05-31] MEDS: Vancomycin HCl 1 GM in Sodium Chloride 0.9% 250 ML 250 ML IVPB SCH ×2 (08:10→20:42)
[2020-05-31] MEDS: Artificial Tear Sol 15 ML BOT EA EYE SCH ×2 (08:10→20:32)
[2020-05-31] MEDS: Potassium Chloride 20 MEQ TAB PO SCH (08:11)
[2020-05-31] MEDS: Aspirin 81 mg Enteric Coated Tablet PO SCH (08:11)
[2020-05-31] MEDS: Polyethylene Glycol 3350 17 GM Packet PO SCH (08:11)
[2020-05-31] MEDS: Zinc Sulfate 220 MG CAP PO SCH (08:11)
[2020-05-31] MEDS: Multivitamin W/ Minerals 1 TAB PO SCH (08:11)
[2020-05-31] MEDS: Acetaminophen 500 MG TAB PO PRN (20:33)
[2020-05-31] MEDS: Simvastatin 20 MG TAB PO SCH (20:33)
[2020-05-31] MEDS: Latanoprost 0.005% Ophth Soln 2.5 ml Bottle EA EYE SCH (20:33)
[2020-05-31] MEDS: Enoxaparin Sodium 40 MG/0.4 ML SYRINGE SC SCH (20:33)
[2020-05-31] MEDS: traZODone HCl 50 MG TAB PO SCH (20:33)
[2020-06-01] MEDS: Multivitamin W/ Minerals 1 TAB PO SCH (08:42)
[2020-06-01] MEDS: Potassium Chloride 20 MEQ TAB PO SCH (08:43)
[2020-06-01] MEDS: Aspirin 81 mg Enteric Coated Tablet PO SCH (08:43)
[2020-06-01] MEDS: Vancomycin HCl 1 GM in Sodium Chloride 0.9% 250 ML 250 ML IVPB SCH ×2 (08:43→21:12)
[2020-06-01] MEDS: Zinc Sulfate 220 MG CAP PO SCH (08:43)
[2020-06-01] MEDS: Artificial Tear Sol 15 ML BOT EA EYE SCH ×2 (08:44→21:19)
[2020-06-01] MEDS: BROMFENAC SODIUM 0.07% R EYE SCH (08:44)
[2020-06-01] MEDS: Polyethylene Glycol 3350 17 GM Packet PO SCH (08:44)
[2020-06-01 14:01] VITALS: BMI 32.0
[2020-06-01] MEDS: Simvastatin 20 MG TAB PO SCH (21:13)
[2020-06-01] MEDS: traZODone HCl 50 MG TAB PO SCH (21:13)
[2020-06-01] MEDS: Latanoprost 0.005% Ophth Soln 2.5 ml Bottle EA EYE SCH (21:19)
[2020-06-01] MEDS: Enoxaparin Sodium 40 MG/0.4 ML SYRINGE SC SCH (21:21)
[2020-06-02 07:50] VITALS: BP 126/66; TEMP 98
[2020-06-02] MEDS: Potassium Chloride 20 MEQ TAB PO SCH (08:43)
[2020-06-02] MEDS: Zinc Sulfate 220 MG CAP PO SCH (08:43)
[2020-06-02] MEDS: Aspirin 81 mg Enteric Coated Tablet PO SCH (08:43)
[2020-06-02] MEDS: Multivitamin W/ Minerals 1 TAB PO SCH (08:43)
[2020-06-02] MEDS: Artificial Tear Sol 15 ML BOT EA EYE SCH (08:44)
[2020-06-02] MEDS: BROMFENAC SODIUM 0.07% R EYE SCH (08:44)
[2020-06-02] MEDS: Polyethylene Glycol 3350 17 GM Packet PO SCH (08:44)
[2020-06-02] MEDS: Vancomycin HCl 1 GM in Sodium Chloride 0.9% 250 ML 250 ML IVPB SCH (08:45)
--- NOTE | 2020-06-06 07:57 | DIS ---
DATE OF ADMISSION: 05/18/2020 DATE OF DISCHARGE: 06/02/2020 DATE OF ADMISSION: From 05/14/2020 to 05/18/2020, in acute care. From 05/18/2020 to 06/02/2020, in extended care. REASON FOR ADMISSION: IV antibiotic for bacteremia and UTI. FINAL DIAGNOSES: 1. Bacteremia with Staphylococcus capitis, without evidence of sepsis. 2. Urinary tract infection with Enterococcus faecalis. 3. Hypotension, deemed secondary to diuretic. Resolved. 4 Left breast mass, new onset, 1.7 cm as determined by CT of the chest. Probable malignancy, needing further outpatient evaluation. 5. Multiple densities of thyroid by CTA findings on 05/11/2020. 6. Pressure induced deep tissue injury of the left heel, clinically improving. 7. Emphysema, moderate, by CTA findings, 05/11/2020 8. Pulmonary hypertension, by CTA findings, 05/11/2020. 9. Phyiscial Deconditioning. 10. Abnormality of gait and balance. SECONDARY DIAGNOSES: 1. Congestive heart failure with the ejection fraction of 55% to 60% as of September 2019 echocardiogram, not in acute exacerbation. 2. Chronic obstructive pulmonary disease. 3. Chronic dysphagia, oropharyngeal. 4. Chronic insomnia. 5. Borderline low oxygen saturation dependent on continuous supplemental oxygen, improved. 6. Alzheimer's dementia with behavioral disturbances, late onset, stable. 7. Dyslipidemia DISPOSITION: [facility]. CONDITION ON DISCHARGE: Stable. HOME MEDICATIONS: 1. Trazodone 25 mg p.o. at bedtime. 2. Simvastatin 20 mg p.o. at bedtime. 3. Xalatan 0.05% one drop into affected eye in the evening time. 4. Pro-Stat 30 mL p.o. b.i.d. 5. Artificial Tears 1 to 2 drops daily p.r.n. 6. Bromfenac sodium 0.07 solution one drop into affected eye daily. 7. Acetaminophen 500 mg p.o. q.4 hours p.r.n. 8. MiraLAX 17 g at bedtime daily. 9. Multivitamins one tablet p.o. daily. DIET: Pureed and nectar thickened. Aspiration precaution. ACTIVITY: Wheelchair bound. The patient at risk for fall without assistance with transfers. FOLLOWUP: Dr. Jean Baptiste to follow up patient in the [facility]. HISTORY OF THE PRESENT ILLNESS AND HOSPITAL COURSE: Ms. Hendricks is a 75-year-old -[place] female who is a long-term resident of [facility] with advanced Alzheimer's dementia, CHF with latest EF of 55% to 60%, dyslipidemia, history of asthma/COPD, chronic hypoxia, O2 dependent, and oropharyngeal dysphagia. The patient was initially seen at [place] ER on 05/10/2020 due to complaint of wet cough and diminished upper lobes associated with lethargy and low blood pressure of 99/57, heart rate of 101. At the time of ER evaluation, the patient was noted to have 100.7 temperature, COVID screen was ordered. Her BNP was 25. Her urinalysis showed mild pyuria with urine wbc 4 to 6 with 3+ bacteria. A chest x-ray at that time showed no evidence of acute cardiopulmonary disease. CTA showed moderate centrilobular emphysema, chronic bronchitis with both lower lobes which is similar to the 2019 CT exam. There was no pneumothorax. There was no significant effusion. There was no suspicious pulmonary nodule. There was a 1.7 cm mass in the left breast, which contains an internal calcification. Pulmonary trunk was mildly dilated. There was no pulmonary embolism. There was a mildly dilated pulmonary trunk and pulmonary artery suggestive of pulmonary hypertension. Moderate cardiomegaly. The patient was hemodynamically stable at that time and was sent back to [place] with COVID screening test pending results. The patient was accepted back by [facility] [place] care human resources administrator and was placed on the COVID isolation unit. Three days after, the patient's blood culture came back with Staphylococcus capitis x2 . Her urine culture came back with enterococcus faecalis, both were sensitive to vancomycin. The patient was then admitted to [facility] on 2019 for IV antibiotic management. The patient received vancomycin for 2 weeks. The patient remains febrile free with no signs of sepsis or seizures during the whole course. The patient tolerated the medications well without significant complications. During this admission, the patient's blood pressure trended down. Her Lasix, which is her only antihypertensive medication was titrated down and completely weaned off. Her blood pressure normalized and has been stable after the diurteic was discontinued. There were occasional mild tachycardia reported during the hospital course that there was no sustained tachyarrhythmia noted. This occasional heart rate elevation in the low 100s and was deemed benign not consistent with signs of sepsis. The patient was also tried on physical therapy during the course in [facility] that maxed out to her baseline Patient remained wheelchair-bound. Her advanced dementia was the main barrier for physical functional mobility status as patient does not follow therapy instructions. During this hospitalization, there was an incidental finding of left breast mass suspicious of malignancy based on the imaging studies appearance. There were also multiple hypodensities of the right lobe of the thyroid. This was discussed with the patient's family as represented by Christianne Zelaya, who acts as the MPOA. After consulting the rest of the members of the family MPOA opted to conservative management of the above findings secondary to the patient may not even tolerate mammogram evaluation secondary to the advanced dementia, confusion, and inability to stand up for prolonged periods of time. Family is well aware that this could be probably malignant and may affect the patient's overall health condition and they are comfortable of that at this point. The patient is DNR which was confirmed by Ms Zelaya/JORGE. No further evaluation will be arranged at this time per family's request. Continue symptomatic care only. PHYSICAL EXAMINATION: VITAL SIGNS: Prior to discharge: Blood pressure 126/66, temp 98, pulse 70, respirations 20, and O2 sats 99% at 2 L per nasal cannula. Job ID: [id number] [facility]
--- NOTE | 2020-06-16 12:31 | PQF ---
CLINICAL DOCUMENTATION CLARIFICATION FORM: Dear :Conchis Jean Baptiste MD Date / Time: 06/16/2020 Please exercise your independent, professional judgment in responding to the clarification form. Clinical indicators are provided on the bottom of this form for your review Please check appropriate box(es): [ ] Bacteremia due to UTI [ ] Bacteremia not due to UTI [ ] Other diagnosis (Please specify if any) [X ] Unable to determine Physician Signature: Date/Time: For continuity of documentation, please document condition throughout progress notes and discharge summary. Thank You. To be completed by CDI/Coding staff for physician review: Present Clinical Indicators - Signs / Symptoms / Labs Results and Location in Medical Record [x ] Bacteremia with staphylococcus capitis, without evidence of sepsis Discharge summary on 06/02 [ x ] IV antibiotic for bacteremia and UTI Discharge summary on 06/02 [ x ] UTI with enterococcus faecalis Discharge summary on 06/02 [x ] Patient received antibiotics for 2 weeks Discharge summary on 06/02 Present Risk Factors Results and Location in Medical Record [ x ] Aged person 75 yrs Discharge summary on 06/02 [ X ] UTI Discharge summary on 06/02 [ ] [ ] Present Treatments Results and Location in Medical Record [ x] Vancomycin Hcl 1gm IV Medication from 05/29 to 06/02 [ ] [ ] [ ] CDS/Youth Corrections Officer Signature: RK Phone #: Date/Time: 06/16/2020 This is a permanent part of the Medical Record [facility]
== END 2020-06-02 13:35 | DRG 872 ==
LOC: MADMS 14:00
PROVIDERS: ADMIT Family Medicine; ATTEND Family Medicine
PROC: 8E0ZXY6 Isolation (ICD-10-PCS; principal; 2020-05-18)
DX: R78.81 Bacteremia (principal); N39.0 Urinary tract infection, site not specified; F02.81 Dementia in other diseases classified elsewhere, unspecified severity, with behavioral disturbance; I48.0 Paroxysmal atrial fibrillation; B95.2 Enterococcus as the cause of diseases classified elsewhere; I95.9 Hypotension, unspecified; I27.20 Pulmonary hypertension, unspecified; J43.9 Emphysema, unspecified; L89.626 Pressure-induced deep tissue damage of left heel; N63.0 Unspecified lump in unspecified breast; I50.9 Heart failure, unspecified; G47.00 Insomnia, unspecified; R13.12 Dysphagia, oropharyngeal phase; E78.5 Hyperlipidemia, unspecified; G30.9 Alzheimer's disease, unspecified; R53.81 Other malaise; Z66 Do not resuscitate; Z99.81 Dependence on supplemental oxygen; Z99.3 Dependence on wheelchair
CPT/HCPCS: 36415; 80048; 80202; 85025; 85652; 86140; J1650; J3370; J3490; J7050

== ENCOUNTER 2020-06-04 21:25 | Emergency (ER) | payer MEDICARE, OTHER ==
--- NOTE | 2020-06-04 22:14 | RAD ---
Exam:Right hip 2 views. One view pelvis. HISTORY: [facility] at [facility] living. COMPARISON: 04/09/2013 FINDINGS: 1 view pelvis: Limited evaluation the sacral ala due to bony mineralization and bowel gas Intact bony pelvis. Mild to moderate loss of the right hip joint space height. Moderate loss of left hip joint space height. Contour of both femoral heads are maintained. There is no evidence of fracture. Remote injury to the left inferior to superior pubic rami are noted 2 views right hip: Suboptimal evaluation the femoral neck due to persistent inward rotation. The javier ent is unable to bear weight, consider CT or MRI IMPRESSION: 1. Suboptimal evaluation the right femoral neck. If the patient is unable to bear weight, consider CT or MRI. 2. No bony pelvic fracture.
--- NOTE | 2020-06-04 22:17 | RAD ---
Exam: One view pelvis HISTORY: Fall at [facility]. COMPARISON: 04/09/2013 FINDINGS: Remote fractures involving the left inferior and superior pubic rami. Intact bony pelvis Limited evaluation of the sacral ala due to bony mineralization and overlying bowel gas [id number] degenerative changes of the right hip. Moderate degenerative change left hip. Both f emoral heads are maintained. Suboptimal evaluation the right femoral neck. IMPRESSION: No definite bony pelvic fracture.
--- NOTE | 2020-06-04 23:11 | CT ---
Exam: Pelvic CT without contrast HISTORY: Fall. Pain. FINDINGS: Visualized abdominal and pelvic structures do not demonstrate any posttraumatic change. The re is a mixed attenuation mass midline of the lower abdomen and to the right aspect of the pelvis. This mass appears to be contiguous and may represent an enlarged uterus with multiple leiomyomas, liseth e of which may be calcified. Uterus measures approximately 6.9 x 15.5 cm. Correlation made with a CT from 05/30/2013 does demonstrate heterogeneously appearing uterus with probable cystic lesions. The re may be a cystic lesion measuring 2.5 cm. There is fecal material scattered throughout the colon. The rectum is distended with thickening of th e rectum as well as subtle perirectal and presacral fat stranding. Correlate for stercoral colitis. There is displacement of the urinary bladder secondary to be a forementioned uterine mass. No obvious bladder injury. Diffuse bone demineralization Lower lumbar spine is intact Sacral ala are preserved Vacuum joint phenomenon in the left SI joint. Intact bony pelvis Intact bilateral obturator rings. Remote injury to the left inferior and superior pubic rami is noted . Contour of bilateral femoral heads are maintained. No fractures. The left and right femoral neck are intact. No femoral neck fracture. IMPRESSION: 1. No post rheumatic changes in the visualized bony pelvis. There is diffuse bone demineralization 2. Possible stercoral colitis. Surgical consultation is recommended. 3. Heterogeneous soft tissue mass occupying the uterus suggesting multifocal and uterine leiomyomas. There may be a cystic lesion involving the right adnexa, incompletely evaluated.
== END 2020-06-05 00:45 ==
LOC: MADERS 21:25
DX: S70.01XA Contusion of right hip, initial encounter (principal); N85.9 Noninflammatory disorder of uterus, unspecified; G30.9 Alzheimer's disease, unspecified; F02.80 Dementia in other diseases classified elsewhere, unspecified severity, without behavioral disturbance, psychotic disturbance, mood disturbance, and anxiety; Z79.82 Long term (current) use of aspirin; Z79.51 Long term (current) use of inhaled steroids; Z79.899 Other long term (current) drug therapy; W19.XXXA Unspecified fall, initial encounter
CPT/HCPCS: 72170; 72192